=== PATIENT | female | born 1975 | race Caucasian/White ===

== ENCOUNTER 2025-05-16 18:58 | Inpatient (IN) | payer MEDICAID ==
[~2025-05-16] VITALS: Ht 160 cm; Wt 79.1 kg
[~2025-05-16 18:58] MED LIST: CLIN-97 PO; NO HOME MEDS
--- NOTE | 2025-05-16 19:49 | Physician Documentation ---
History of Present Illness ~ Chief Complaint: Wound Stated Complaint: RASH ON LEG Time Seen by MD: 19:09 Primary Medical Doctor: PROSPER GOLDEN Source: patient Mode of Arrival: POV Exam Limitations: no limitations HPI Chief Complaint: Right leg pain and swelling Caveat: None Independent Historians: None History of Present Illness: Patient is a 49-year-old woman who comes in complaining of severe right foot and leg swelling and redness. Five days ago the patient stepped on a tack with her right bear foot in the mid anterior sole. That appears to have healed without any problems. Patient noticed a small abrasion wound over the right lateral foot the day after that (four days ago). The day after that (three days ago) she developed significant swelling and redness of the foot that has gotten progressively worse. The pain is 10/10, constant and throbbing. Patient denies any fever. Patient thought that the wound over the right lateral foot was maybe an abrasion from her flip-flop or an abrasion from black very bushes when she was picking blackberries. Patient believes she may have extracted a thorn from that wound. That wound also appears to have healed. Review of systems: All systems were reviewed and are negative except for what is indicated in the history of present illness. Past Medical History: None Past Surgical History: Cholecystectomy Social History: Tobacco use, denies alcohol use, distant heroin use nine years ago. She has been clean for nine years. Occasional marijuana use Medications: Reviewed as documented Nursing Notes Allergies: Reviewed as documented in Nursing Notes Tetanus witin 5 years: Yes Medication Reconciliation Allergies: Coded Allergies: Sulfa (Sulfonamide Antibiotics) (Verified Allergy, Unknown, 05/16/25) ketorolac tromethamine (Verified Allergy, Unknown, 05/16/25) morphine (Verified Allergy, Unknown, 05/16/25) quetiapine (Verified Allergy, Unknown, 05/16/25) trazodone (Verified Allergy, Unknown, 05/16/25) Scheduled Clindamycin HCL* (Clindamycin HCL*), 1 CAP PO Q6H Miscellaneous Medications Home Med List (No Home Medications), (Reported) Past Medical History Past Medical History: Gastritis, Pancreatitis, Anemia Past Surgical History: cholecystectomy Alcohol Use: None Drug Use: none Lives with: Spouse Lives In: Home Review of Systems All Other Systems at this time: Reviewed and Negative ROS Patient denies any other acute symptoms other than above. All other systems are negative Physical Exam Vital Signs: RN Vital Signs have been reviewed: Yes, Temperature: 97.7, Source: Temporal, Heart Rate: 109, Respiratory Rate: 17, BP: 115/71, Pulse Oximetry: 100 Pulse Oximetry Reflects: adequate oxygenation Physical Exam General Appearance: Moderate distress HEENT: Normal OP, moist oral mucosa, PERRL, EOMI Neck: supple, normal ROM, trachea midline Pulmonary: No respiratory distress, CTA, BS equal Cardiac: RRR, no murmur, rub or gallop, GI: nondistended, soft, nontender, normal bowel sounds, no guarding, no rebound Extremities: Right foot and leg appear diffusely erythematous swollen and hot to touch. Patient has a healed microscopic wound to the mid sole of the right foot from stepping on a tack. Patient has what appears to be a healed wound or abrasion to the right distal lateral foot. There was no crepitus. Skin: intact, dry, warm, no rashes Neuro: AAOx3, speech is clear, no focal motor weakness Psych: normal affect, good eye contact, no apparent hallucination, normal speech Progress Results/Orders Results/Orders Orders - HILARIO LÓPEZ MD Culture Blood (05/16/25 19:09) Urinalysis, Cult If Indicated (05/16/25 19:09) Chest,Single View (05/16/25 ) Monitor (05/16/25 19:09) Oxygen (05/16/25 19:09) Saline Lock (05/16/25 19:09) BMP (05/16/25 19:09) Ed Iv Pain Medications (05/16/25 20:52) Potassium Cl 40meq/1/2ns 520ml ([place] (05/16/25 21:00) Potassium Cl Sr Tablet (K-Dur Tablet) (05/16/25 21:00) Page Hospitalist (05/16/25 21:04) Fill Out Med Reconciliation (05/16/25 21:04) Drug Screen, Urine (05/16/25 21:58) MG (05/16/25 20:26) Hgb A1c (05/16/25 20:26) Completed Orders - HILARIO LÓPEZ MD Cbc/Diff (05/16/25 19:09) Chest,Single View (05/16/25 ) Procalcitonin (05/16/25 19:09) Lacticsepsis (05/16/25 19:09) Cefepime 2g/Ns 100ml Advantage (Maxipime (05/16/25 19:50) Vancomycin/H2o 1.5g/300ml Pb (Vancomycin (05/16/25 19:50) Cefepime 2gm In D5w 50ml (Cefepime-D5w 2 (05/16/25 19:53) Vancomycin*Pharmacy To Dose* (Vancomycin (05/16/25 20:30) Vancomycin/Ns 1 Gm Add-Lov[place] (Vancomyc (05/16/25 20:29) Ondansetron Inj. (Zofran 4mg/2ml Vial) (05/16/25 20:55) Morphine 4mg/Ml Inj. (Morphine Inj.) (05/16/25 20:55) Medications Received in ER Medications (Trade) Dose Ordered Sig/[place] Route PRN Reason Start Time Stop Time Status Last Admin Dose Admin Vancomycin HCl 250 ml @ 166 mls/hr NOW STAT IV 05/16/25 20:29 05/16/25 21:59 DC 05/16/25 20:50 166 MLS/HR (Zofran 4mg/2ml vial) 4 mg ONCE ONCE IV 05/16/25 20:55 05/16/25 20:56 DC 05/16/25 21:14 4 MG (morphine inj.) 4 mg Q20M PRN IV moderate to severe pain 4-10 05/16/25 20:55 05/16/25 22:33 DC 05/16/25 21:14 4 MG Potassium Chloride 520 ml @ 130 mls/hr ONCE ONCE IV 05/16/25 21:00 05/17/25 00:59 05/16/25 22:15 130 MLS/HR (K-DUR tablet) 40 meq ONCE ONCE PO 05/16/25 21:00 05/16/25 21:02 DC 05/16/25 21:19 40 MEQ Vital Signs 05/16/25 05/16/25 05/16/25 05/16/25 19:04 19:55 21:14 22:19 Temp 97.7 Pulse 109 94 Resp 17 16 19 18 B/P (MAP) 115/71 125/72 (89) Pulse Ox 100 96 O2 Flow Rate 0 Laboratory Tests Test 05/16/25 20:26 White Blood Count 7.8 Red Blood Count 3.97 L Hemoglobin 11.7 L Hematocrit 33.9 L Mean Corpuscular Volume 85.5 Mean Corpuscular Hemoglobin 29.6 Mean Corpuscular Hemoglobin Concent 34.6 Red Cell Distribution Width 13.6 Platelet Count 225 Mean Platelet Volume 8.3 Neutrophils (%) (Auto) 72.2 Lymphocytes (%) (Auto) 18.1 L Monocytes (%) (Auto) 5.0 Eosinophils (%) (Auto) 4.5 Basophils (%) (Auto) 0.2 Neutrophils # (Auto) 5.6 Lymphocytes # (Auto) 1.4 Monocytes # (Auto) 0.4 Eosinophils # (Auto) 0.4 Basophils # (Auto) 0.0 CBC Comment Sodium Level 135 Potassium Level 2.4 *L Chloride Level 101 Carbon Dioxide Level 26.2 Anion Gap 8 Blood Urea Nitrogen 12 Creatinine 0.72 Estimated GFR/1.73 m2 86 BUN/Creatinine Ratio 16.7 Glucose Level 89 Lactic Acid Level 1.3 Calcium Level 8.8 Albumin 2.7 L Procalcitonin 0.71 H Chemistry Comments Microbiology Date/Time Source Procedure Growth Status 05/16/25 20:26 Blood Iv Draw Blood Culture - Preliminary NEGATIVE (LESS THAN 24 HOURS) Resulted Medical Decision Making Findings Differential diagnosis includes but is not limited to: Necrotizing fasciitis, cellulitis, sepsis, electrolyte abnormalities EKG independent interpretation: Chest x-ray, single view, indication: Evaluation for sepsis, history of marijuana use Independent interpretation: Clear, normal mediastinum, normal cardiac silhouette. No acute cardiopulmonary process Laboratory data independent interpretation: CBC: Mild anemia, hemoglobin 11.7 CMP: Moderate hypokalemia, potassium 2.4 Procalcitonin: Urinalysis: Lactic acid: 1.3 Emergency department course/medical decision-making: Patient presents with right lower extremity swelling and erythema consistent with a severe cellulitis. Low suspicion for necrotizing fasciitis. White blood cell count is normal. No crepitus on exam. Pain is not out of proportion to exam. Patient is started on IV Maxipime and vancomycin. Recommend admission for IV antibiotics despite unremarkable blood work. However the patient is hypokalemic. Patient will be given IV potassium along with oral potassium. Patient is given morphine 4 mg IV for pain and Zofran 4 mg IV for nausea. Test results and treatment plan reviewed with the patient. Recommend admission. Test results and treatment plan and need for admission discussed with the patient. All the above was reviewed with the patient. Consultation/communications: 9:54 p.m.: Case discussed with our resident hospitalist, Dr. Zavala. She will evaluate the patient for admission. Departure Time of Disposition: 20:55 Disposition: ADMITTED INPATIENT Admitted to Inpatient Unit: to hospitalist Admission Level of Care: Med/Surg Impression: Primary Impression: Cellulitis of right leg Additional Impressions: Hypokalemia Intractable right lower extremity pain Condition: Fair Education Educated: Patient Educated regarding: diagnosis, treatment Signature Scribe Signature: No scribe Attestation: No scribe HILARIO LÓPEZ MD May 16, 2025 19:49
[2025-05-16] MEDS ORDERED: VANCOMYCIN/H2O 1.5g/300mL PB 300 ML IV STA (19:50)
[2025-05-16] MEDS ORDERED: cefepime 2g/NS 100ml ADVANTAGE 100 ML IV STA (19:50)
--- NOTE | 2025-05-16 20:01 | RADIOLOGY REPORT ---
Procedure: DI CHEST,SINGLE VIEW 05/16/2025 07:19 PM Indication: sepsi Comparison: None TECHNIQUE: DI CHEST,SINGLE VIEW FINDINGS: Medical devices: None. Cardiomediastinal: The heart is normal in size. Pulmonary vasculature is within normal limits. Lungs: No focal pulmonary opacity is seen. The costophrenic angles are clear. No pneumothorax. Bones/soft tissues: No acute abnormality is noted. IMPRESSION: 1. No acute cardiopulmonary disease.
[2025-05-16 20:33] LABS: MEAN PLATELET VOLUME 8.3 FL (7.4-10.4); RED CELL DISTRIBUTION WIDTH 13.6 % (11.5-14.5)
[2025-05-16 20:45] LABS: CREATININE 0.72 MG/DL (0.40-0.90); TOTAL CARBON DIOXIDE 26.2 MMOL/L (24-32); eCRCL 78 ML/MIN; eGFR 86 ML/MIN
[2025-05-16] MEDS: vancomycin/NS 1 GM ADD-VANTAGE 250 ML X 1 DOSE IV STA (20:50)
[2025-05-16] MEDS: morphine 4 MG/ML inj SYRINge IV PRN (21:14)
[2025-05-16] MEDS: ondansetron/PF 4mg/2ml inj IV ONE (21:14)
[2025-05-16] MEDS: potassium Cl 20 mEq SR tablet PO ONE (21:19)
[2025-05-16] MEDS: potassium Cl 40MEQ/1/2NS 520ml 520 ML IV ONE (22:15)
[2025-05-16] MEDS ORDERED: potassium Cl 40MEQ/1/2NS 520ml 520 ML IV PRN (22:25)
[2025-05-16] MEDS ORDERED: mag hydrox/Alum hydrox/simeth 30ml oral suspension PO PRN (22:25)
[2025-05-16] MEDS ORDERED: ondansetron/PF 4mg/2ml inj IV PRN (22:25)
[2025-05-16] MEDS ORDERED: magnesium sulf-water 4G/100mL 100 ML IV PRN (22:25)
[2025-05-16] MEDS ORDERED: magnesium Cl slow-release 64mg tablet PO PRN (22:25)
[2025-05-16] MEDS ORDERED: magnesium sulf-water 2g/50mL 50 ML IV PRN (22:25)
[2025-05-16] MEDS ORDERED: magnesium hydroxide 30ml (MOM) UD suspension PO PRN (22:25)
[2025-05-16] MEDS ORDERED: potassium Cl 20 mEq SR tablet PO PRN ×2 (22:25)
[2025-05-16] MEDS ORDERED: acetaminophen 1,000mg/100ml IV 100 ML IV PRN (22:30)
[2025-05-16] MEDS: CEFEPIME 2gm in D5W 50mL 50 ML IV STA (22:42)
[2025-05-16] MEDS: normal saline 1000ml 1,000 ML IV SCH (22:42)
--- NOTE | 2025-05-16 22:47 | HISTORY AND PHYSICAL-Residence ---
History & Physical Providers to CC Resident Creating Document: RONNI VARGAS RES ~ History of Present Illness Primary Medical Doctor: PROSPER GOLDEN Reason for Admit\Complaint: Right lower extremity cellulitis History of Present Illness This 49-year-old female presented to the ER with a chief concern of pain, swelling, redness and edema of right lower extremity. States that it started four days back. She thinks she noticed some abrasion on her foot and thought it was from her footwear. She also mentions getting injured by a sharp object-pin which was later removed. She also stated that she has noticed a small blister at the base of the 5th toe on the dorsum which later broke open and noticed whitish discharge. No bleeding. She also complains of maggots exposure in her back porch where she was standing bare foot. All this happened about four days back. Complains of increased swelling, pain and redness since then. States that she used an antibiotic for the last two days prescribed at the walk-in clinic. Is not sure about the antibiotic name. Also has nausea and states that she throat up 2-3 times in the last four days due to severe pain. Denies any chest pain, shortness of breath, dysuria, dizziness or syncope, constipation or diarrhea or any other concerns. I stated that she sometimes takes Suboxone film and she took one this morning. Also smoked pot this morning due to pain. Allergies: Coded Allergies: Sulfa (Sulfonamide Antibiotics) (Verified Allergy, Unknown, 05/16/25) ketorolac tromethamine (Verified Allergy, Unknown, 05/16/25) morphine (Verified Allergy, Unknown, 05/16/25) quetiapine (Verified Allergy, Unknown, 05/16/25) trazodone (Verified Allergy, Unknown, 05/16/25) Home Medications Home Medications Active Clindamycin HCL* (Clindamycin HCl) 300 Mg Capsule 1 Cap PO Q6H Reported No Home Medications (Home Med List) Each Past Medical History Past Medical History Gastritis, Pancreatitis, Anemia, tobacco abuse, history of heroin abuse Past Surgical History Surgical History Comment Cholecystectomy Past Social History Social History Comment Smokes about 5-6 cigarettes per day for the last 10 years. History of intramuscular heroin abuse-clean for nine years. Denies any alcohol intake. Smokes pot Alcohol Use: None Drug Use: None Lives with: Spouse Lives In: Home ROS ROS Constitutional: No fever, chills, dizziness, weakness, weight gain or loss Eyes: No pain, erythema, discharge, blurring of vision ENT: No sore throat, epistaxis, tinnitus Cardiovascular: No chest pain, chest pressure, chest discomfort, palpitations, syncope, lower extremity edema, paroxysmal nocturnal dyspnea Respiratory: No shortness of breath, cough, hemoptysis Gastrointestinal: Nausea and vomiting present. Normal appetite. No diarrhea, constipation, hematemesis, abdominal pain, bloating, melena or fresh blood Genitourinary: No frequency, urgency, nocturia, hematuria or dysuria Musculoskeletal: Right lower extremity pain, swelling and erythema present Integumentary: No change in skin, hair, nails. No swelling, bruising, abrasions Neurologic: No headache, neck pain, numbness or tingling of the extremities, weakness Psychiatric: No delusions, depression, loss of interest in normal activity or change in sleep pattern, hallucinations, suicidal ideations Endocrine: No fatigue, weakness, polydipsia, polyuria, change in appetite, heat or cold intolerance, sweating, dry skin Hematological: No bleeding, petechiae, bruising Allergies: No asthma or urticaria Exam Vitals: Vital Signs Date Time Temp Pulse Resp B/P (MAP) Pulse Ox O2 Delivery O2 Flow Rate FiO2 05/16/25 22:19 94 18 125/72 (89) 96 0 05/16/25 19:04 97.7 General: Alert and oriented x4 HEENT: Normocephalic and atraumatic. Pupils equal round reactive to light and accommodation. Extraocular movements intact. Oral and nasal mucosa moist Neck: Trachea is in midline. No masses or JVD Chest: Bilateral normal breath sounds. No crackles, rhonchi or wheezes Cardiovascular: Regular rate and rhythm. S1-S2 normal. No rubs or murmurs Abdomen: Soft, nontender nondistended. Bowel sounds present Extremities: Right lower extremity swelling, edema, erythema of the foot up till just below the knee. No edema in the left leg. No cyanosis or clubbing. Central Nervous System: No gross sensory or motor deficits. CN II to XII intact Skin: Warm and dry Diagnostic Data Last Recorded Lab Results: 05/16/25202505/16/252025 Advance Care Planning Advanced Care plannin - 30 Minutes Additional Plan Right lower extremity cellulitis Possible sepsis Received cefepime 2 g IV once and vancomycin IV once in the ER Started Zosyn 3.375 g IV q.8h and vancomycin pharmacy to dose Nondiabetic. A1c five History of IM drug abuse Maggots exposure Trauma from sharp object Started normal saline at 75 cc/hour Ordered right lower extremity CT to look for any abscess or foreign body Ordered blood cultures venous usg ordered to look for DVT Lactic acid normal. Procalcitonin elevated-0.71 States that she took Suboxone film this morning Received one dose of morphine 4 mg IV in the ER No signs of opioid overdose Started Tylenol 1 g IV q.6h p.r.n. for pain Complains of hives with Toradol Also on morphine 1 mg IV q.4h p.r.n. for [id number]-[id number] pain Closely monitor for any signs of opiate overdose like confusion, respiratory depression, pinpoint pupils Pending CPK, UA and urine tox Hypokalemia Potassium 2.4 Received K-Dur 40 mEq and mEq potassium chloride IV once in the ER Recheck potassium 2-4 hours after completing the IV potassium Replace potassium as per protocol Tobacco abuse History of heroin abuse States that she took Suboxone film this morning Received one dose of morphine 4 mg IV in the ER No signs of opioid overdose Started Tylenol 1 g IV q.6h p.r.n. for pain Also on morphine 1 mg IV q.4h p.r.n. for [id number] pain Closely monitor for any signs of opiate overdose like confusion, respiratory depression, pinpoint pupils Diet: Regular diet DVT prophylaxis: Lovenox 40 mg subcutaneous daily Ronni Vargas MD Internal Medicine Resident, PGY 3 I saw and discussed and evaluated the patient with the resident Note has been modified to incorporate all our discussion and agreements I agree with plan of care as documented Date of Service: May 16, 2025 Billing Provider: TRAE VICTORIA MD, MANOJNA RES May 16, 2025 22:47 ALEX CHATMAN MD May 17, 2025 05:32
[2025-05-16] MEDS ORDERED: BUPR1FIL3 SL (22:55)
[2025-05-16 23:20] VITALS: BP 116/62; PULSE 85; RESP 22; TEMP 98.3; O2SAT 98
[2025-05-16 23:48] LABS: LEUKOCYTE ESTERASE ,URINE SMALL (Neg); NITRITES, URINE NEGATIVE (Neg); OCCULT BLOOD,URINE MODERATE (Neg)
[2025-05-16 23:51] LABS: UA COLLECTION TYPE NON-SPECIFIED
[2025-05-16 23:56] LABS: MUCUS STRANDS FEW /LPF (Neg); SQUAMOUS EPITHELIAL CELL,UR MODERATE /LPF (FEW); URINE AMPHETAMINE SCREEN POSITIVE (Neg); URINE BARBITUATE SCREEN NEGATIVE (Neg); URINE BENZODIAZEPINES SCREEN NEGATIVE (Neg); URINE CANNABINOID SCREEN NEGATIVE (Neg); URINE COCAINE SCREEN NEGATIVE (Neg); URINE METHADONE SCREEN NEGATIVE (Neg); URINE OPIATE SCREEN POSITIVE (Neg); URINE PHENCYCLIDINE SCREEN NEGATIVE (Neg)
[2025-05-17] VITALS: RESP 20
[2025-05-17] MEDS ORDERED: piperacillin/tazo 3.375gm/50ml 50 ML IV SCH
--- NOTE | 2025-05-17 03:21 | RADIOLOGY REPORT ---
INDICATION: rule out abscess or any internal foreign body COMPARISON: None TECHNIQUE: CT of the right leg was performed without contrast. Volume transverse images were obtained and reconstructed in multiple planes using bone and soft tissue algorithms. Radiation Dose Information: CT Dose: CTDI volume is 16.76 mGy. Dose-length product is 1134.55 mGy*cm FINDINGS: The alignment is normal. Hfiq-[id number] medial tibiofemoral compartment narrowing and osteophytosis likely secondary to oste oarthritic degenerative change. The joint spaces are otherwise normal. There is no fracture, dislocation or aggressive osseous lesion. Trace joint effusion. Moderate diffuse edema throughout the ventral aspect of the lower leg as well a s about the ankle. The soft tissues are otherwise normal. IMPRESSION: 1. Moderate diffuse soft tissue edema throughout the ventral lower leg and circumferentially around t he ankle. No definite organized fluid collection to suggest abscess formation. 2. All CT scans at this medical facility are performed using dose modulation techniques as appropriat e to a performed exam including the following: Automated exposure control was utilized; adjustment of the MA and/or KV according to patient size; and use of iterative reconstruction technique.
[2025-05-17 03:41] LABS: MEAN PLATELET VOLUME 9.1 FL (7.4-10.4); RED CELL DISTRIBUTION WIDTH 13.4 % (11.5-14.5)
[2025-05-17 04:15] LABS: APTT 29 SECONDS (22-32); INR 1.0 INR
[2025-05-17 04:18] LABS: CHOL/HDL RATIO 4.9 (0.00-4.99); CREATININE 0.70 MG/DL (0.40-0.90); LDL CHOLESTEROL 69 MG/DL (50-100); PHOSPHORUS 3.1 MG/DL (2.3-4.5); TOTAL CARBON DIOXIDE 26.2 MMOL/L (24-32); eCRCL 80 ML/MIN; eGFR 89 ML/MIN
--- NOTE | 2025-05-17 04:39 | VASCULAR REPORT ---
Right lower extremity venous duplex Clinical History: Right lower extremity swelling and erythema Comparison: None Technique: Duplex Doppler evaluation of the deep venous system of the right lower extremity from the common femo ral vein to the popliteal vein including color Doppler and spectral/pulsed waveform analysis was perf ormed. Findings: The common femoral vein demonstrates appropriate compressibility and waveform variability. There is compressibility/patency of the great saphenous vein at the proximal thigh. The femoral vein demonstrates appropriate compressibility and waveform variability. The deep femoral vein demonstrates appropriate compressibility and waveform variability. The popliteal vein demonstrates appropriate compressibility and waveform variability. There is normal compressibility at the tibioperoneal trunk. Impression: 1. No right femoropopliteal venous thrombosis. 2. Contralateral common femoral vein is patent.
[2025-05-17 06:00] VITALS: BP 148/82; PULSE 94; RESP 14; TEMP 98.5; O2SAT 97
[2025-05-17] MEDS ORDERED: vancomycin/NS 1 GM ADD-VANTAGE 250 ML IV SCH (08:00)
[2025-05-17] MEDS: K and/or MAG REPLACEMENT MC SCH (08:00)
[2025-05-17] MEDS: buprenorphine/naloxone 8MG-2MG SUBlingual film SL SCH (08:45)
[2025-05-17] MEDS: vancomycin/NS 1 GM ADD-VANTAGE 250 ML IV SCH (08:52)
[2025-05-17] MEDS: piperacillin/tazo 3.375gm/50ml 50 ML IV SCH (08:52)
[2025-05-17 10:00] VITALS: BP 97/59; PULSE 83; RESP 17; TEMP 98.1; O2SAT 93
--- NOTE | 2025-05-17 10:14 | ELECTROCARDIOGRAPH REPORT ---
[facility] Test Date: 2025-05-16 Test Time: 22:53:05 Pat Name: OLMAN KELLOGG Department: EMERGENCY ROOM Room: ORTHO [facility] Gender: F Fire Protection Specialist: CHRISTIANO : 1975 Requested By: RONNI VARGAS Order Number: [id number] Reading MD: Measurements Intervals [place] Rate: 94 P: 50 IA: 140 QRS: 49 QRSD: 105 T: 45 QT: 350 QTc: 438 Interpretive Statements Pacemaker spikes or artifacts Sinus rhythm Low voltage, precordial leads Borderline T abnormalities, anterior leads Baseline wander in lead(s) V1 Please click the below link to view image of tracing.
[2025-05-17] MEDS: TETanus/Pertussis (Acell)/Diphther VAC/PF (Tdap-Adult) 0.5ml syringe IMVAC ONE (13:23)
--- NOTE | 2025-05-17 15:05 | PROGRESS NOTE- Residence ---
Progress Note - Resident Providers to CC Resident Creating Document: DES WYNN RES CC: JUANJOSE MARQUES MD ~ Antibiotic Timeout Antibiotic Ordered?: Yes Subjective Since seen this morning. Stated pain over the right lower extremity is decreased currently 610. Stated she is taking Suboxone once in a week. She does smoke methamphetamine, but denies current IV drug use Objective Vital Signs Date Time Temp Pulse Resp B/P (MAP) Pulse Ox O2 Delivery O2 Flow Rate FiO2 05/17/25 13:25 14 05/17/25 08:00 Room Air 05/17/25 06:30 91 05/17/25 06:00 98.5 148/82 (104) 97 05/16/25 22:19 0 Result Diagram: 05/17/25 0318 05/17/25 0922 General: Adult female, AAO x4, not in apparent distress Head: Normocephalic with an atraumatic Eyes: Pupils- 3mm, reacting to light, conjunctiva- anicteric Nose and throat: No polyps, septum- normal, no mucosal ulcers Neck: Supple, no lymphadenopathy, no carotid bruit Respiratory: No use of accessory muscles of respiration, Bilateral normal vesiscular breath sounds heard. No wheeze, rhochi or creps Cardiac: S1-S2 heard, rythm regular, no gallop/murmur Abdomen: non distended, no tenderness, no organomegaly, bowel sounds- heard Extremities: Right lower extremity from below knee up to the toes there is erythema, swelling, tender to touch, with a small ulcer present over the lateral aspect of the foot. no clubbing, peripheral pulses -2 + Skin: warm and dry, no rash, no purpura Neuro: No focal deficit, gross cranial nerve exam- normal Coagulation Studies Laboratory Tests Test 05/17/25 03:45 Prothrombin Time 10.2 SECONDS (9.0-12.0) INR International Normalized Ratio 1.0 INR Activated Partial Thromboplast Time 29 SECONDS (22-32) Coagulation Comments Assessment Assessment 49 year old female with history of methamphetamine use came to the ER with chief complaints of relief lower extremity pain, redness, swelling for almost a week Plan Plan Right lower extremity cellulitis- failed outpat antibiotic therapy Sepsis- ruled out -DVT ruled out, CT ruled out abscesses -suspected right lower extremity cellulitis secondary to wound on the right foot -as patient has a history of IV drug use, patient is started on IV Zosyn and IV vanco -continue IV vanco pharmacy to dose and IV Zosyn 4.5 g q.8h -we will deescalate antibiotics from tomorrow -monitor CBC, protocol -monitor for the size of erythema Hypokalemia -potassium improved to 3.3 -replacement per protocol Normocytic anemia -H&H 9.9/28.8 -follow up on iron panel Tobacco use -patient is counseled regarding the harmful effects of smoking, and she declined nicotine patch at this Methamphetamine use History of heroin abuse few years ago -patient is counseled against the use of methamphetamine and regarding the harmful effects of methamphetamine -currently she is taking Suboxone 8 mg sublingual once in a week for opioid addiction Code Status: Full code Line/tube: PIV DVT prophylaxis: Lovenox Nutrition: Regular diet PT: no Prognosis: Guarded Disposition: Continue care in ortho floor, DC to home in a day or two Des Wynn MD IM PGY-3 resident Date of Service: May 17, 2025 Billing Provider: JUANJOSE MARQUES MD,DES, RES May 17, 2025 15:05
[2025-05-17 18:00] VITALS: BP 103/30; PULSE 94; RESP 16; TEMP 97.2; O2SAT 100
[2025-05-17 20:00] VITALS: RESP 16; O2SAT 100
--- NOTE | 2025-05-17 20:06 | RADIOLOGY REPORT ---
CHEST RADIOGRAPH REASON FOR EXAM: wheezing COMPARISON: DI CHEST,SINGLE VIEW on DOS: 05/16/25 TECHNIQUE: One view of the chest is provided FINDINGS: The cardiomediastinal silhouette is within normal limits for technique. There is no focal a irspace disease. There is no significant pleural effusion. No acute bony abnormality is identified. IMPRESSION: No radiographic evidence of acute cardiopulmonary process.
[2025-05-17] MEDS: enoxaparin 40mg/0.4ml syringe SQ SCH (20:46)
[2025-05-17 22:00] VITALS: BP 116/65; PULSE 95; RESP 14; TEMP 99.5; O2SAT 99
[2025-05-17] MEDS ORDERED: VANCOMYCIN/H2O 1.25G/250mL PB 250 ML IV ONE (23:30)
[2025-05-17] MEDS: VANCOMYCIN/H2O 1.25G/250mL PB 250 ML IV ONE (23:32)
[2025-05-18 06:00] VITALS: BP 112/59; PULSE 94; RESP 16; TEMP 98.1; O2SAT 94
[2025-05-18] MEDS: VANCOMYCIN LEVEL IV ONE (07:30)
[2025-05-18 09:01] LABS: CREATININE 0.69 MG/DL (0.40-0.90); PHOSPHORUS 4.5 MG/DL (2.3-4.5); TOTAL CARBON DIOXIDE 23.8 MMOL/L (24-32); eCRCL 82 ML/MIN; eGFR 90 ML/MIN
[2025-05-18 09:16] LABS: % IRON SATURATION 17 % (11-46)
[2025-05-18 10:00] VITALS: BP 126/62; PULSE 82; RESP 16; TEMP 97.9; O2SAT 97
[2025-05-18] MEDS ORDERED: LACT1CAP26 PO (10:41)
[2025-05-18] MEDS ORDERED: LINE600T11 CORPAK (10:41)
[2025-05-18] MEDS ORDERED: FERR325T28 PO (12:56)
[2025-05-18] MEDS ORDERED: LINE600T11 PO (13:20)
--- NOTE | 2025-05-18 18:17 | DISCHARGE SUMMARY-Residence ---
Discharge Summary Providers to CC Resident Creating Document: DES [facility] RES CC: JUANJOSE MARQUES MD ~ Discharge Summary Assessment 49 year old female with history of methamphetamine use came to the ER with chief complaints of relief lower extremity pain, redness, swelling for almost a week Admission Diagnosis: RIGHT LOWER EXTREMITY CELLULITIS Hospital Course DATE OF ADMISSION: 05/16/2025 DATE OF DISCHARGE: 05/18/2025 Discharge Diagnosis\Comment: Right lower extremity cellulitis- failed outpat antibiotic therapy Sepsis- ruled out -DVT ruled out, CT ruled out abscesses Hypokalemia-resolved Normocytic anemia-likely anemia of chronic disease Tobacco use Methamphetamine use Operations\Procedures: none Consultants: none Complications: none Condition on DC: Stable New Medications: Ferrous Sulfate* (Ferrous Sulfate*) 325 Mg Tablet 1 TAB PO BID, #60 TAB Lactobacillus Rhamnosus (Culturelle) 10 Billion Cell Capsule 1 CAP PO DAILY for 30 Days, #30 CAP 0 Refills Linezolid (ZYVOX tablet) 600 Mg Tablet 600 MG PO BID for 7 Days, #14 TAB Continued Medications: Buprenorphine Hcl/Naloxone Hcl (Suboxone 8 Mg-2 Mg Sl Film) 8 Mg-2 Mg Film 0.25 STRIP SL Q7D for 30 Days, #30 STRIP Discharge Summary: 49 year old female with history of methamphetamine use came to the ER with chief complaints of relief lower extremity pain, redness, swelling for almost a week, and failed outpatient antibiotic therapy with clindamycin Hospital course -patient is admitted for diagnosis of cellulitis, and we ruled out DVT and underlying abscess. Patient is initiated on vancomycin and Zosyn in view of her history of IV drug use. Symptoms were improved and objectively the cellulitis size was also improved. And had mild hypokalemia which was resolved with replacement. She had anemia with hemoglobin of 9 and her iron panel is sugges tive of anemia of chronic disease. And was adequately counseled regarding the harmful use of tobacco and methamphetamine and strongly recommended to stop. We continued her medication of Suboxone for opioid dehydration. She had no complications during the hospital stay and she is hemodynamically stable at the time of discharge General: Adult female, AAO x4, not in apparent distress Head: Normocephalic with an atraumatic Eyes: Pupils- 3mm, reacting to light, conjunctiva- anicteric Nose and throat: No polyps, septum- normal, no mucosal ulcers Neck: Supple, no lymphadenopathy, no carotid bruit Respiratory: No use of accessory muscles of respiration, Bilateral normal vesiscular breath sounds heard. No wheeze, rhochi or creps Cardiac: S1-S2 heard, rythm regular, no gallop/murmur Abdomen: non distended, no tenderness, no organomegaly, bowel sounds- heard Extremities: Right lower extremity from below knee up to the toes there is erythema, swelling, tender to touch, with a small ulcer present over the lateral aspect of the foot. no clubbing, peripheral pulses -2 +, erythema and swelling improved in size Skin: warm and dry, no rash, no purpura Neuro: No focal deficit, gross cranial nerve exam- normal CT lower extremity 1. Moderate diffuse soft tissue edema throughout the ventral lower leg and circumferentially around the ankle. No definite organized fluid collection to suggest abscess formation. Right lower extremity venous US 1. No right femoropopliteal venous thrombosis. 2. Contralateral common femoral vein is patent. Laboratory Tests Test 05/16/25 20:26 05/16/25 23:35 05/17/25 03:18 05/17/25 03:45 White Blood Count 7.8 X10'3 5.1 X10'3 Red Blood Count 3.97 X10'6 3.32 X10'6 Hemoglobin 11.7 g/dl 9.9 g/dl Hematocrit 33.9 % 28.8 % Mean Corpuscular Volume 85.5 FL 86.7 FL Mean Corpuscular Hemoglobin 29.6 PG 29.9 PG Mean Corpuscular Hemoglobin Concent 34.6 g/dL 34.5 g/dL Red Cell Distribution Width 13.6 % 13.4 % Platelet Count 225 X10'3 173 X10'3 Mean Platelet Volume 8.3 FL 9.1 FL Neutrophils (%) (Auto) 72.2 % 66.7 % Lymphocytes (%) (Auto) 18.1 % 21.1 % Monocytes (%) (Auto) 5.0 % 7.5 % Eosinophils (%) (Auto) 4.5 % 4.4 % Basophils (%) (Auto) 0.2 % 0.3 % Neutrophils # (Auto) 5.6 X10'3 3.4 X10'3 Lymphocytes # (Auto) 1.4 X10'3 1.1 X10'3 Monocytes # (Auto) 0.4 X10'3 0.4 X10'3 Eosinophils # (Auto) 0.4 X10'3 0.2 X10'3 Basophils # (Auto) 0.0 X10'3 0.0 X10'3 CBC Comment Sodium Level 135 MMOL/L 140 MMOL/L Potassium Level 2.4 MMOL/L 3.3 MMOL/L Chloride Level 101 MMOL/L 108 MMOL/L Carbon Dioxide Level 26.2 MMOL/L 26.2 MMOL/L Anion Gap 8 6 Blood Urea Nitrogen 12 MG/DL 9 MG/DL Creatinine 0.72 MG/DL 0.70 MG/DL Estimated GFR/1.73 m2 86 ML/MIN 89 ML/MIN BUN/Creatinine Ratio 16.7 12.9 Glucose Level 89 MG/DL 103 MG/DL Hemoglobin A1c 5.0 % Lactic Acid Level 1.3 MMOL/L Calcium Level 8.8 MG/DL 8.2 MG/DL Magnesium Level 1.9 MG/DL 1.8 MG/DL Albumin 2.7 G/DL 2.1 G/DL Procalcitonin 0.71 NG/ML Chemistry Comments Urine Specimen Description Non-specified Urine Color Yellow Urine Clarity Clear Urine pH 6.0 Urine Specific [place] 1.010 Urine Protein Trace mg/dl Urine Glucose (UA) Negative mg/dl Urine Ketones Negative mg/dl Urine Occult Blood Moderate Urine Nitrite Negative Urine Bilirubin Negative Urine Urobilinogen 1.0 E.U/dL Urine Leukocyte Esterase Small Urine RBC 3-10 /HPF Urine WBC 5-10 /HPF Urine Squamous Epithelial Cells Moderate /LPF Urine Transitional Epithelial Cells Few /HPF Urine Bacteria Few /HPF Urine Mucus Few /LPF Urine Culture Indicated Indicated Volume Urine Centrifuged 10 ml Urine Comment Urine Opiates Screen Positive Urine Methadone Screen Negative Urine Fentanyl Screen Negative Urine Barbiturates Screen Negative Urine Phencyclidine Screen Negative Urine Amphetamines Screen Positive Urine Benzodiazepines Screen Negative Urine Cocaine Screen Negative Urine Cannabinoids Screen Negative Drug Screen Comment Coagulation Comments Prothrombin Time 10.2 SECONDS INR International Normalized Ratio 1.0 INR Activated Partial Thromboplast Time 29 SECONDS Phosphorus Level 3.1 MG/DL Total Bilirubin 0.4 MG/DL Aspartate Amino Transf (AST/SGOT) 37 U/L Alanine Aminotransferase (ALT/SGPT) 52 U/L Alkaline Phosphatase 155 IU/L Total Creatine Kinase 115 U/L Total Protein 6.0 G/DL Globulin 3.9 G/DL Albumin/Globulin Ratio 0.5 Triglycerides Level 116 MG/DL Cholesterol Level 122 MG/DL LDL Cholesterol 69 MG/DL HDL Cholesterol 25 MG/DL Cholesterol/HDL Ratio 4.9 Test 05/17/25 09:22 05/18/25 08:05 Potassium Level 3.8 MMOL/L 3.7 MMOL/L CBC Comment Sodium Level 139 MMOL/L Chloride Level 107 MMOL/L Carbon Dioxide Level 23.8 MMOL/L Anion Gap 8 Blood Urea Nitrogen 12 MG/DL Creatinine 0.69 MG/DL Estimated GFR/1.73 m2 90 ML/MIN BUN/Creatinine Ratio 17.4 Glucose Level 91 MG/DL Calcium Level 8.7 MG/DL Phosphorus Level 4.5 MG/DL Magnesium Level 2.0 MG/DL Iron Level 31 UG/DL Total Iron Binding Capacity 182 UG/DL Percent Iron Saturation 17 % Ferritin 222 NG/ML Total Bilirubin 0.5 MG/DL Aspartate Amino Transf (AST/SGOT) 29 U/L Alanine Aminotransferase (ALT/SGPT) 40 U/L Alkaline Phosphatase 166 IU/L Total Protein 6.6 G/DL Albumin 2.1 G/DL Globulin 4.5 G/DL Albumin/Globulin Ratio 0.5 Chemistry Comments Vancomycin Level Trough 20.0 ug/mL DISCHARGE MEDICATIONS CAN BE FOUND ABOVE AND SHE IS SENT HOME WITH THE FOLLOWING RECOMMENDATIONS Please take antibiotics as prescribed Keep the leg elevated during night and avoid dipping the foot in the swimming pool Avoid walking bare foot Strongly recommended to stop methamphetamine use strongly recommended to stop tobacco use Please establish care with Jacob Mccauley for primary care physician as soon as possible Return to the ER in case of recurrence of symptoms *Problems/Diagnosis: (1) Cellulitis of right leg Status: Acute Total Time Spent on D/C: > 30 Minutes Date of Service: May 18, 2025 Billing Provider: JUANJOSE MARQUES MD, HARIVARSHA, RES May 18, 2025 17:57
== END 2025-05-18 13:53 | disposition home or self-care (01) | DRG 383 ==
LOC: ER 18:58 → ORTHO 4S 22:30
PROVIDERS: ADMIT Internal Medicine Pulmonary Disease; ATTEND Family Medicine
PROC: 3E0234Z Introduction of Serum, Toxoid and Vaccine into Muscle, Percutaneous Approach (ICD-10-PCS; principal; 2025-05-17)
DX: L03.115 Cellulitis of right lower limb (principal); D63.8 Anemia in other chronic diseases classified elsewhere; F15.90 Other stimulant use, unspecified, uncomplicated; E86.0 Dehydration; E87.6 Hypokalemia; Z90.49 Acquired absence of other specified parts of digestive tract; Z88.5 Allergy status to narcotic agent; Z88.2 Allergy status to sulfonamides; Z88.8 Allergy status to other drugs, medicaments and biological substances
CPT/HCPCS: 36415; 71045; 73700; 80048; 80053; 80061; 80202; 80305; 81001; 82550; 82728; 83036; 83540; 83550; 83605; 83735; 84100; 84132; 84145; 84466; 85025; 85610; 85730; 87040; 87081; 87088; 90715; 93005; 93971; 96365; 96375; 99285; G0378; J0692; J1650; J2270; J2405; J2543; J3373; J3480; J7030; Q0163